=== PATIENT | female | born 1990 | race Caucasian/White ===

== ENCOUNTER 2025-07-29 10:01 | Emergency (ER) | payer OTHER, SELFPAY ==
[2025-07-29 10:09] VITALS: BP 138/86
--- NOTE | 2025-07-29 10:38 | ED.GENMED ---
History of Present Illness
General
Chief Complaint: Abdominal Symptoms
Source: patient
Exam Limitations: none
Time Seen by Provider: 07/29/25 10:27
Nursing documentation reviewed up to this point in time: agreed with
History of Present Illness
History of Present Illness:
Patient is a 35-year-old female with history of kidney stones who presents to the emergency department for acute onset left flank pain. Patient reports sharp pain in her left mid abdomen which started around 8:20 AM while she was making a phone
call. She denies any radiation into her back or groin. She reports dry heaves on the way to the emergency department. No fever or chills. No dysuria, gross hematuria, diarrhea/constipation. No chest pain or shortness of breath. She states that
she was in her normal state of health yesterday.
No known sick contacts.
She does have a history of a kidney stone in 2019 which felt similar. LMP early July.
Review of Systems
Review of Systems
Allergies reviewed?: Yes
All Other Systems: ROS reviewed and negative except as documented in HPI and ROS
Phy Exam
Physical Exam
Physical Exam:
Vitals: Mildly hypertensive, otherwise vital signs stable. Afebrile
General: Patient appears in mild discomfort. Nontoxic appearing
Skin: Warm and dry, no rashes or lesions
Eyes: Sclera nonicteric.
Throat: Protecting airway
Neck: Normal ROM
Cardiac: Regular rate and rhythm, no murmurs.
Pulm: Normal respiratory effort. Lungs clear bilaterally
Abdomen: Abdomen soft. Mild tenderness in left mid abdomen. No rebound or guarding. No CVA tenderness
Extremities: No evidence of cyanosis or edema
Neuro: AAOx3. Grossly intact
Psychiatric: Normal affect.
Course
Orders/Labs/Results
Orders:
Orders
07/29/25 10:35
Abdomen/Pelvis wo Contrast CT [CT Abd/pelvis Wo Iv Cont] Urgent
Comment:
Reason For Exam: Left mid abdominal pain; hx kidney stones
0.9% Sodium Chloride 1000 ml [Nss] 1,000 ml IV BOLUS
Ketorolac [Toradol] 15 mg IV NOW STA
Ondansetron Injectable [Zofran] 4 mg IV NOW STA
07/29/25 10:36
Test Result ONCE
07/29/25 10:49
Complete Blood Count/With Diff Urgent
Comprehensive Metabolic Panel Urgent
HCG, Serum Qualitative Screen Urgent
Lipase Urgent
Urinalysis Reflex To Culture Urgent
Date Specimen was Collected: 07/29/25
Time Specimen was Collected: 10:47
Abnormal Lab Results
07/29/25
10:49
WBC 3.9 L 10^3/uL
(4.8-10.8)
Absolute Lymphs (auto) 0.7 L 10^3/uL
(1.2-3.4)
Lymphocytes % 19.1 L %
(20.5-51.1)
07/29/25 10:49
07/29/25 10:49
Vital Signs
Initial and Last Documented VS:
Initial Vital Signs
Temp Pulse Resp BP Pulse Ox
98.4 F 66 16 138/86 100
07/29/25 10:09 07/29/25 10:09 07/29/25 10:09 07/29/25 10:09 07/29/25 10:09
Last Documented Vital Signs
Temp Pulse Resp BP Pulse Ox
99.5 F 58 20 105/58 100
07/29/25 12:49 07/29/25 12:49 07/29/25 12:49 07/29/25 12:49 07/29/25 12:49
MDM/Problems Addressed
Differential Diagnosis Includes:
Not limited to: Renal colic, cystitis, pyelonephritis, diverticulitis, constipation, pancreatitis, viral illness, etc.
MDM/Problems Addressed:
35-year-old female with acute onset left mid abdominal pain. She did have episode of dry heaves en route to ED. No associated fever, dysuria, hematuria, diarrhea. No chest pain or shortness of breath. Mildly hypertensive, otherwise vital signs
stable. She is afebrile. On exam, she is mildly uncomfortable however nontoxic appearing. Abdomen soft with mild reproducible tenderness in left mid abdomen. No rebound or guarding. No focal tenderness at McBurney's point. No CVA tenderness or
rash. Cardio/pulmonary assessment unremarkable
Differential as above. Will obtain labs, UA, and noncontrast CT scan abdomen/pelvis to rule out obstructing kidney stone. Will give IV fluids, Toradol, Zofran, and reassess
Labs were sent off which reveal mild leukopenia. Chemistry unremarkable. UA without evidence of infection or RBCs. CT scan without any evidence of obstructing ureteral calculi. Small right sided intrarenal stone noted. Appendix noted to be
normal without any other acute intra-abdominal pathology. Location of pain not consistent with pelvic etiology and no abnormalities noted on CT. Her symptoms have improved after Toradol. Unclear etiology for patient's symptoms today, possible
viral illness or muscular etiology. Workup in ED negative�low suspicion for acute emergent intra-abdominal process. Feel stable for discharge home with supportive care and close return precautions. Patient comfortable with plan.
Chronic conditions affecting care:
History of kidney stones
Acute Exacerbation and/or Progression of Chronic Illness:
N/A
*Radiology
Radiology exam reviewed: radiology read reviewed
*Pulse Oximetry
SaO2: 100
Oxygen Mode of Delivery: Room air
Patient hypoxic: no
*EKG
Interpreted by ED Provider?: NA
*[employer] Technical Lead Senior Developer Interpretation
Rate: [employer] Technical Lead Senior Developer- N/A
*Critical Care Note
Total Time (30-74mins, 75-104mins- exclusive of procedures): Not Applicable
ED Attending Note
-
Portions of this chart may have been created with voice recognition software.� Occasional wrong word or��sound alike� substitutions may have occurred due to the inherent limitations of voice recognition software.
Discharge Plan
Departure
Patient Disposition: Home (Routine Discharge)
Date of Disposition: 07/29/25
Time of Disposition: 13:14
Patient with high blood pressure during this ER visit?: No
Condition: Good
Discharge Problem:
Abdominal pain
Instructions: Abdominal Pain
Prescriptions:
New
ondansetron 4 mg tablet,disintegrating
4 mg PO Q8H PRN (Reason: nausea and vomiting) Qty: 7 0RF
Referrals:
NONE,* [Family Provider, Internal Medicine]
Activity Restrictions/Additional Instructions:
RETURN TO THE EMERGENCY DEPARTMENT WITH ANY FEVER, PERSISTENT/WORSENING ABDOMINAL PAIN, PERSISTENT LACK OF APPETITE, INTRACTABLE NAUSEA/VOMITING, DIFFICULTIES URINATING, WORSENING IN CURRENT SYMPTOMS, OR ANY OTHER CONCERNS
- As discussed, your white blood cell count was low today in the emergency department. This may be viral however please have this repeated with your primary care to ensure return to normal.
- We are unsure the exact cause of your symptoms today. Your CT scan did not show any acute abnormalities. It may be viral or muscular in nature. Please stay well-hydrated at home and follow a bland diet. You can take Tylenol and/or Motrin as
needed for pain.
Monitor your symptoms closely and return to the emergency department with any acute worsening/new symptoms or any other concerns
Interventions
Interventions:
*General Assessment Last Done: 07/29/25 10:55
*ED COVID-19 Vaccine History Last Done: 07/29/25 10:55
*ED Influenza Vaccine History Last Done: 07/29/25 10:55
*Risk Screen - Suicide (C-SSRS) Last Done: 07/29/25 10:55
*Nursing Disposition Last Done: 07/29/25 13:24
KS-Wbtyap-Jzkayydeiq Assessment Last Done: 07/29/25 10:55
Discharge Date and Time
Discharge Date/Time: 07/29/25 13:24
Print Language: CITIZEN OF [place]
[2025-07-29] MEDS: TORADOL 15 MG IV (10:54)
[2025-07-29] MEDS: NSS 1000 IV (10:54)
[2025-07-29] MEDS: ZOFRAN 4 MG IV (10:54)
[2025-07-29 10:55] VITALS: BMI 25.4
[2025-07-29 11:12] LABS: Hematocrit 37.4 % (37.0-47.0); Hemoglobin 12.9 g/dL (12.0-16.0); Mean Corp Hgb Conc. 34.5 g/dL (33.0-37.0); Mean Corpuscular Volume 83.3 fL (81.0-99.0); Nucleated Red Blood Cells % 0 %; Platelet Count 278 10^3/uL (130-400); Red Cell Dist. Width 11.7 % (11.5-14.5)
[2025-07-29 11:17] LABS: Urine Character Clear (Clear)
[2025-07-29 11:21] LABS: HCG, Serum Qualitative Screen Negative
[2025-07-29 11:33] LABS: ALT (SGPT) 19 U/L (0-35); AST (SGOT) 22 U/L (14-36); Albumin 4.6 g/dl (3.5-5.0); Alkaline Phosphatase 54 U/L (38-126); Blood Urea Nitrogen 12 mg/dl (7-17); Calcium 9.6 mg/dl (8.4-10.2); Carbon Dioxide 27 mmol/L (22-30); Chloride 103 mmol/L (98-107); Estimated Creatinine Clearance 81 ml/min; Glucose 93 mg/dl (70-99); Lipase 42 U/L (23-300); Potassium 4.3 mmol/L (3.5-5.1); Sodium 135 mmol/L (135-145); Total Protein 7.5 g/dl (6.3-8.2); eGFR > 60.00
[2025-07-29 12:49] VITALS: BP 105/58
== END 2025-07-29 13:24 | disposition home or self-care (01) ==
LOC: EMR 10:01
PROVIDERS: Physician Assistant; EMERGENCY PHYSICIAN Emergency Medicine
DX: N20.0 Calculus of kidney (principal); R10.A2 Flank pain, left side; D72.819 Decreased white blood cell count, unspecified
CPT/HCPCS: 96374; 96375; 96361; 99284; 74176; 80053; 81003; 83690; 84703; 85025